=== PATIENT | male | born 1945 | race Caucasian/White ===

== ENCOUNTER 2018-12-08 10:33 | Day surgery (SDC) | payer MEDICARE ==
[~2018-12-08] VITALS: Ht 160 cm; Wt 62.0 kg
[~2018-12-08 10:33] MED LIST: AMLO5TAB9 PO; ATOR10TA84 PO; DOCU250C91 PO; LORA10TA7 PO; MONT10TA21 PO; PSEU60 PO; RANI150T7 PO; SENN-176 PO; TAMS0.4C32 PO
[2018-12-08] MEDS ORDERED: SODIUM CHLORIDE 0.9% 1,000 ML IV ONE (11:17)
[2018-12-08] MEDS: SODIUM CHLORIDE 0.9% 1,000 ML IV ONE (11:21)
== END 2018-12-08 14:05 | disposition home or self-care (01) ==
LOC: SURGERY 10:33
PROVIDERS: ATTEND Internal Medicine Gastroenterology
DX: K62.5 Hemorrhage of anus and rectum (principal); I10 Essential (primary) hypertension; E78.00 Pure hypercholesterolemia, unspecified; K59.04 Chronic idiopathic constipation; J44.9 Chronic obstructive pulmonary disease, unspecified; Z86.73 Personal history of transient ischemic attack (TIA), and cerebral infarction without residual deficits; Z79.899 Other long term (current) drug therapy; Z87.891 Personal history of nicotine dependence
CPT/HCPCS: 45378; J7030